=== PATIENT | female | born 1980 | race Caucasian/White ===

== ENCOUNTER → 2017-02-06 | Outpatient (CLI) | payer BC, OTHER ==
[~2017-02-06] MED LIST: MIDOL
--- NOTE | 2017-02-06 19:49 | Diagnostic Imaging Report ---
EXAMINATION: Transabdominal and transvaginal pelvic ultrasound. INDICATION: Menorrhagia. Dysmenorrhea. FINDINGS: The uterus is 9.2 x 8.8 x 6.1 cm. It is heterogenous with no discrete mass identified. The endometrial stripe is some 6 mm in thickness. Tiny amount of endometrial fluid is noted. The left ovary is 3.5 x 2.4 x 1.4 cm. Arterial waveforms are demonstrated with Doppler evaluation. The right adnexal images failed to demonstrate the right ovary which could be obscured by bowel gas. IMPRESSION: 1. Enlarged heterogenous uterus without discrete mass. Consider possibility of underlying adenomyosis. 2. The right ovary is not seen. Dictated by: Dictated on workstation # [id number]
== END ==
LOC: RAD 12:58
PROVIDERS: ATTEND Nurse Practitioner
DX: N85.2 Hypertrophy of uterus (principal)
CPT/HCPCS: 76830; 76856

== ENCOUNTER → 2019-10-28 | Outpatient (CLI) | payer BC, OTHER ==
--- NOTE | 2019-10-28 12:14 | Diagnostic Imaging Report ---
PROCEDURE: US Non-ob pelvis comp/trans. INDICATION: Pelvic pain. TECHNIQUE: Multiple Real-time grayscale sonographic images were obtained of the pelvis transabdominally and endovaginally. CORRELATION STUDY: 02/06/2017. FINDINGS: UTERUS: Mildly enlarged at 11.1 x 7.5 x 8.1 cm. Diffusely heterogeneous echotexture throughout the myometrium. ENDOMETRIUM: Somewhat indistinct but appears to be likely within normal limits at approximately 6 mm. RIGHT OVARY: Not visualized, perhaps obscured by overlying bowel gas and/or positional. LEFT OVARY: 4.0 x 1.8 x 1.7 cm . Somewhat limited in assessment but overall generally unremarkable. Blood flow in particular is not well visualized. Small amount of pelvic fluid. IMPRESSION: 1. Mildly enlarged, heterogeneous appearance about the uterus without definitive discrete mass. While nonspecific, this may reflect underlying adenomyosis. 2. Limited visualization of the left ovary but grossly unremarkable with nonvisualization of the right ovary. Dictated by: Dictated on workstation # [id number]
--- NOTE | 2019-10-28 13:02 | Diagnostic Imaging Report ---
INDICATION: Routine screening. No prior mammograms are available for comparison. This is a baseline study. 2-D and 3-D bilateral screening mammography was performed with CAD. Both breasts are heterogeneously dense, limiting the sensitivity of mammography. Densities are identified in both the medial and lateral aspect of the left breast at anterior depth. These are best seen on the CC view, appear to be superiorly located on the MLO view. Additional views recommended. No suspicious microcalcifications are seen. IMPRESSION: BI-RADS Category 0. Left breast densities. Additional views are recommended for further evaluation. ACR BI-RADS Category 0: Incomplete. (Needs additional imaging evaluation). Result letter will be mailed to the patient. Note: At least 10% of breast cancer is not imaged by mammography. Dictated by: Dictated on workstation # [id number]
== END ==
LOC: RAD 09:23
PROVIDERS: ATTEND Nurse Practitioner
DX: Z12.31 Encounter for screening mammogram for malignant neoplasm of breast (principal); N93.8 Other specified abnormal uterine and vaginal bleeding
CPT/HCPCS: 76830; 76856; 77063; 77067

== ENCOUNTER → 2019-11-07 | Outpatient (CLI) | payer BC ==
--- NOTE | 2019-11-07 14:12 | Diagnostic Imaging Report ---
INDICATION: Left breast densities. Patient presents for additional views. CORRELATION is made with recent screening study from 10/28/2019. Unilateral left 2-D and 3-D diagnostic mammography was performed. This included spot compression CC, rolled CC and conventional 90 degree lateral views. Additional view shows some persistence of circumscribed nodular densities in the upper left breast both on the medial and lateral side 3-5 cm from the nipple. These may represent cysts. No suspicious calcifications are seen. IMPRESSION: BI-RADS 0. Persistent densities in the upper left breast medial and lateral. Further evaluation with ultrasound is recommended and will be performed today. ACR BI-RADS Category 0: Incomplete. (Needs additional imaging evaluation). Result letter will be mailed to the patient. Note: At least 10% of breast cancer is not imaged by mammography. Dictated by: Dictated on workstation # [id number]
--- NOTE | 2019-11-07 16:53 | Diagnostic Imaging Report ---
INDICATION: Left breast densities. Correlation is made with diagnostic study earlier this same day and screening mammogram from 10/28/2019. Sonographic interrogation of the left breast was performed. Imaging was performed from approximately the 10:00 to 3:00 location. There are numerous cysts present, greatest in the 10:00 region approximately 3 cm from the nipple. Largest is 9 mm x 4 mm x 8 mm. This likely accounts for the densities noted mammographically. No solid mass is detected. IMPRESSION: BI-RADS Category 2 Simple left breast cysts, likely accounting for the mammographic densities. The patient may return to routine annual screening mammography. ACR BI-RADS Category 2: Benign findings. Result letter will be mailed to the patient. Note: At least 10% of breast cancer is not imaged by mammography. Dictated by: Dictated on workstation # [id number]
== END ==
LOC: RAD 13:07
PROVIDERS: ATTEND Nurse Practitioner
DX: N60.02 Solitary cyst of left breast (principal)
CPT/HCPCS: 76642; 77065; G0279

== ENCOUNTER 2019-12-04 05:33 | Outpatient (CLI) | payer BC ==
[~2019-12-04] VITALS: Ht 167.7 cm; Wt 88.6 kg
== END 2019-12-04 13:06 | disposition home or self-care (01) ==
LOC: PREOP 05:33
PROVIDERS: ATTEND Obstetrics & Gynecology
DX: Z01.818 Encounter for other preprocedural examination (principal)

== ENCOUNTER 2019-12-08 08:58 | Day surgery (SDC) | payer BC ==
[2019-12-08] VITALS (10 sets, daily range): BP systolic 107–135; BP diastolic 63–97
[~2019-12-08] VITALS: Ht 167.7 cm; Wt 88.6 kg
[2019-12-08] MEDS ORDERED: LACTATED RINGERS 1,000 ML IV PRN (09:08)
[2019-12-08] MEDS ORDERED: LACTATED RINGERS 1,000 ML IV ONE (09:08)
[2019-12-08] MEDS ORDERED: ceFAZolin 2 GM IV Premixed 50 ML IV ONE (09:15)
[2019-12-08] MEDS ORDERED: metroNIDAZOLE 500MG/100ML IVPB 100 ML IV ONE (09:15)
--- OUTSIDE RECORDS SUMMARY | 2019-12-08 09:28 | XMS REPORT | Continuity of Care Document ---
Author Author [facility] Organization [employer] Address Unknown Phone Unavailable Allergies Active Description Code Type Severity Reaction Onset Reported/Identified Relationship to Patient Clinical Status Yes No Known Drug Allergies [id number] Drug Allergy Mild N/A 01/10/2009 Medications There is no data. Problems Date Dx Coded Attending Type Code Diagnosis Diagnosed By 02/21/2017 NAHOMY LLANOS Ot N85.2 HYPERTROPHY OF UTERUS 11/07/2019 NAHOMY LLANOS Ot N93.8 OTHER SPECIFIED ABNORMAL UTERINE AND VAG 11/07/2019 NAHOMY LLANOS Ot Z12.3 1 ENCNTR SCREEN MAMMOGRAM FOR MALIGNANT NE 11/10/2019 NAHOMY LLANOS Ot N60.0 2 SOLITARY CYST OF LEFT BREAST 11/14/2019 NAHOMY LLANOS Ot N93.8 OTHER SPECIFIED ABNORMAL UTERINE AND VAG 11/14/2019 NAHOMY LLANOS Ot Z12.3 1 ENCNTR SCREEN MAMMOGRAM FOR MALIGNANT NE 11/21/2019 NAHOMY LLANOS Ot N60.0 2 SOLITARY CYST OF LEFT BREAST Procedures There is no data. Results There is no data. Encounters ACCT No. Visit Date/Time Discharge Status Pt. Type Provider Facility Loc./Unit Complaint [id number] 12/04/2019 05:33:00 020 13:06:00 DIS Outpatient ARNOLD RAGSDALE DO [facility] PREOP MENORRHAGIA [id number] 11/07/2019 13:07:00 23:59:59 CLS Outpatient NAHOMY LLANOS [facility] RAD ABN MAMMO [id number] 10/28/2019 09:23:00 020 23:59:59 CLS Outpatient NAHOMY LLANOS [facility] RAD SCREENING,DYSFUNCTIONAL UTERINE BLEEDING [id number] 02/06/2017 12:58:00 23:59:59 CLS Outpatient NAHOMY LLANOS [facility] RAD MENORRHAGIA N92.0 [id number] 12/08/2019 10:15:00 P [facility]
[2019-12-08 09:35] LABS: BASOPHILS # (AUTO) 0.1 10^3/uL (0.0-0.1); BASOPHILS % (AUTO) 1 % (0-10); EOSINOPHILS # (AUTO) 0.3 10^3/uL (0.0-0.3); EOSINOPHILS % (AUTO) 3 % (0-10); HEMATOCRIT 45 % (35-52); HEMOGLOBIN 15.1 G/DL (11.5-16.0); LYMPHOCYTES # (AUTO) 2.6 X 10^3 (1.0-4.0); LYMPHOCYTES % (AUTO) 26 % (12-44); MEAN CORPUSCULAR HEMOGLOBIN 29 PG (25-34); MEAN CORPUSCULAR HGB CONC 33 G/DL (32-36); MEAN CORPUSCULAR VOLUME 88 FL (80-99); MEAN PLATELET VOLUME 10.7 FL (7.4-10.4); MONOCYTES % (AUTO) 10 % (0-12); NEUTROPHILS # (AUTO) 6.1 X 10^3 (1.8-7.8); NEUTROPHILS % (AUTO) 61 % (42-75); PLATELET COUNT 321 10^3/uL (130-400); RED CELL DISTRIBUTION WIDTH 14.4 % (10.0-14.5)
[2019-12-08] MEDS ORDERED: BUPIVACAINE 0.25% 30 ML (SENSORCAINE) VIAL ONE (09:37)
[2019-12-08] MEDS ORDERED: ESTRADIOL VAGINAL CREAM 42.5 GM (ESTRACE) VG ONE (09:38)
[2019-12-08] MEDS ORDERED: NS (IVPB) 0 ML ONE (09:43)
[2019-12-08] MEDS ORDERED: VASOPRESSIN INJECTION 20 UNIT/ML VIAL ONE (09:43)
[2019-12-08] MEDS ORDERED: ZOLPIDEM 5 MG (AMBIEN) TAB PO PRN (09:45)
[2019-12-08] MEDS ORDERED: KETOROLAC 30 MG/ML VIAL IV PRN (09:45)
[2019-12-08] MEDS ORDERED: HYDROcodone/APAP 7.5 MG/325 MG (LORTAB, LORCET PLUS) TABLET PO PRN (09:45)
[2019-12-08] MEDS ORDERED: SIMETHICONE 80 MG (MYLICON) CHEW PO PRN (09:45)
[2019-12-08] MEDS ORDERED: DOCUSATE SODIUM 100 MG (COLACE) CAP PO PRN (09:45)
[2019-12-08] MEDS ORDERED: CHLORASEPTIC LOZENGE MM PRN (09:45)
[2019-12-08] MEDS ORDERED: ANTACID SUSP 30 ML UDC (MYLANTA) PO PRN (09:45)
[2019-12-08] MEDS ORDERED: ONDANSETRON 4 MG/2 ML (SDV) Z0FRAN IV PRN (09:45)
--- NOTE | 2019-12-08 09:45 | Progress Note-Pre Operative ---
Pre-Operative Progress Note H&P Reviewed The H&P was reviewed, patient examined and no changes noted. Date Seen by Provider: Dec 08, 2019 Time Seen by Provider: :44 Date H&P Reviewed: Dec 08, 2019 Time H&P Reviewed: 09:44 Pre-Operative Diagnosis: Dysmenorrhea, Menorrhagia, POP ARNOLD RAGSDALE DO Dec 08, 2019 09:44
[2019-12-08] MEDS ORDERED: HYDR-34 PO (09:52)
[2019-12-08] MEDS ORDERED: IBUP-844 PO (09:52)
[2019-12-08] MEDS ORDERED: SIME80TA16 PO (09:52)
[2019-12-08] MEDS ORDERED: DCS100C PO (09:52)
--- NOTE | 2019-12-08 09:53 | Discharge Inst-Women's Service ---
Discharge Inst-Women's Serv Depart Medication/Instructions New, Converted or Re-Newed RX: RX on Chart Problems Reviewed?: Yes Consults/Follow Up Additional Follow Up: Yes Activity Activity: Activity as Tolerated Driving Instructions: No Driving for 1 Week NO SMOKING: NO SMOKING Nothing Inside Vagina: No Douching, No Libby, No Tampons Diet Discharge Diet: No Restrictions Symptoms to Report to : Bleeding Excessive, Pain Increased, Fever Over 101 Degrees F, Vaginal Bleeding Increase, Questions/Concerns For Any Problems or Questions: Contact Your Physician Skin/Wound Care Infection Signs and Symptoms: Increased Redness, Foul Odor of Wound, Increased Drainage, Skin Itchy or Has a Rash, Increased Swelling, Temperature Above 101 F Operative Area Clean and Dry: Keep Incision Clean/Dry Stitches/[place]/Dermabond: Dermabond, Care of Stitches Bathing Instructions: ARNOLD Rivas DO Dec 08, 2019 09:53
[2019-12-08] MEDS ORDERED: ONDANSETRON 4 MG/2 ML (SDV) Z0FRAN ONE (09:59)
[2019-12-08] MEDS ORDERED: ROCURONIUM 10 MG/ML 5 ML SYRINGE IV ONE ×2 (09:59→10:01)
[2019-12-08] MEDS ORDERED: SEVOFLURANE (ULTANE) 15 ML INHAL SOLN ONE (09:59)
[2019-12-08] MEDS ORDERED: fentaNYL INJECTION 100 MCG/2 ML AMP ONE (09:59)
[2019-12-08] MEDS ORDERED: LIDOCAINE PF 2% 5 ML (XYLOCAINE) VIAL ONE (09:59)
[2019-12-08] MEDS ORDERED: proPOfol 200 MG/20 ML (DIPRIVAN) VIAL IV ONE (09:59)
[2019-12-08] MEDS ORDERED: MIDAZOLAM 2 MG/2 ML (VERSED) VIAL ONE (09:59)
[2019-12-08] MEDS ORDERED: NEOSTIGMINE 3 MG/3 ML VIAL ONE (10:00)
[2019-12-08] MEDS ORDERED: GLYCOPYRROLATE 0.2 MG/ML (ROBINUL) 2 ML VIAL ONE (10:00)
[2019-12-08] MEDS ORDERED: HYDROmorphone 2 MG/ML VIAL (DILAUDID) ONE (11:07)
[2019-12-08] MEDS ORDERED: KETOROLAC 30 MG/ML VIAL ONE (11:55)
[2019-12-08] MEDS ORDERED: HYDROmorphone 2 MG/ML VIAL (DILAUDID) IV ONE (12:30)
[2019-12-08] MEDS ORDERED: ONDANSETRON 4 MG/2 ML (SDV) Z0FRAN IVP PRN (12:30)
[2019-12-08] MEDS: LACTATED RINGERS 1,000 ML IV SCH ×2 (12:32→15:16)
--- NOTE | 2019-12-08 13:08 | Anesthesia-General Post-Op ---
General Patient Condition Mental Status/LOC: Same as Preop Cardiovascular: Satisfactory Nausea/Vomiting: Absent Respiratory: Satisfactory Pain: Controlled Complications: Absent Post Op Complications Complications None Follow Up Care/Instructions Patient Instructions None needed. Anesthesia/Patient Condition Patient Condition Patient is doing well, no complaints, stable vital signs, no apparent adverse anesthesia problems. No complications reported per nursing. [place] [facility] [place]: Yes KILO CORRAL CRNA Dec 08, 2019 13:08
--- NOTE | 2019-12-08 13:20 | NUR ---
REPORT FROM VANESSA CAZARES.
--- NOTE | 2019-12-08 13:30 | NUR ---
INITIAL ASSESSMENT COMPLETED, SEE INTERVENTIONS FOR DETAILED ASSESSMENTS, PLAN OF CARE EXPLAINED, WILL MONITOR CLOSELY.
[2019-12-08] MEDS ORDERED: guaiFENesin (MUCINEX) 600 MG TAB PO ONE (17:37)
[2019-12-08] MEDS ORDERED: IBUPROFEN 600 MG (MOTRIN) TAB PO ONE (17:37)
--- NOTE | 2019-12-08 17:50 | NUR ---
PRANAV TUCKER demonstrates understanding of discharge instructions and accurately returns instructions upon questioning. Copy of Post-Discharge Instructions and Medication Discharge Instructions given to patient. PRANAV TUCKER is able to manage continuing needs after discharge. Patients belongings returned to patient. Skin dry and intact; no breakdown noted. Patient discharged from 3303- on 12-08-19 at 1750. PRANAV TUCKER left floor via w/c, accompanied by staff.
--- NOTE | 2019-12-08 20:57 | OPERATIVE REPORT ---
DATE OF SERVICE: PREOPERATIVE DIAGNOSES: 1. A 39-year-old female with menorrhagia. 2. Dysmenorrhea. 3. Grade II cystocele with mild pelvic organ prolapse. POSTOPERATIVE DIAGNOSES: 1. A 39-year-old female with menorrhagia. 2. Dysmenorrhea. 3. Grade II cystocele with mild pelvic organ prolapse. PROCEDURE: Robotic-assisted total laparoscopic hysterectomy with bilateral salpingectomy. SURGEON: Alex Kapadia DO DRY CELL BATTERY ASSEMBLER: Gabi Yanez DNP, was necessary for manipulation and retraction throughout the procedure. ANESTHESIA: General endotracheal. ESTIMATED BLOOD LOSS: Minimal. URINE OUTPUT: 50 mL clear at the end of the procedure. FLUIDS: 1000 mL lactated Ringer's solution. FINDINGS: A hyperemic and bulky appearing uterus, absent of the distal ampullary portion of fallopian tubes bilaterally. Grossly normal-appearing ovaries. SPECIMEN SENT: Uterus, bilateral fallopian tubes. INDICATIONS FOR PROCEDURE: This 39-year-old female patient was a consultation to me from Renetta Castellanos, our nurse practitioner, for findings of pelvic organ prolapse as well as history of heavy bleeding that had failed more conservative management measures in the past. Upon reviewing this with the patient in detail in the office, she was wishing to proceed with more definitive measures and resolution of her bladder prolapse. Risks of procedure were discussed with the patient in detail including risk of bleeding, infection, damaging surrounding structures including, but not limited to bowel, bladder, ureter, kidneys, possible need for reoperation, postoperative complications that may occur, recovery timeframe, risk from anesthesia and possible need for blood transfusion and even . After everything was discussed with the patient in detail, consent was obtained in the preoperative area, the patient was taken to the operating room. OPERATIVE REPORT IN DETAIL: Once in the operating room, general anesthesia was found to be adequate. She was placed in dorsal lithotomy position, prepped and draped in normal sterile fashion. A timeout was performed. A weighted speculum was inserted into the patient's vagina after Colon catheter was placed using sterile technique. A right angle retractor was used to visualize the cervix. It was grasped at 12 o'clock position using a long Allis clamp and 0 Vicryl suture was then placed in the anterior lip of the cervix and this was using my retraction point. I then removed the Allis clamp and gently sounded the uterine cavity at a depth of 8 cm. I selected an 8 cm Tanya uterine manipulator tip and a 3.5 cm colpotomy ring. The manipulator tip was advanced into the uterus where the balloon was deployed and the colpotomy ring was advanced around the vaginal fornix after which all other instruments were removed from the patient's vagina. I performed a change of gloves and took my attention to the abdomen where infraumbilically I infiltrated this area using 0.25% Marcaine. I made an 8 mm incision with a knife and directed a Veress needle through the incision until intraperitoneal placement was confirmed using saline drop test. I then proceeded with insufflation using CO2 gas and opening pressure of 5 mmHg was noted. I proceeded to a maximum pressure of 15 mmHg, at which point I removed the Veress needle and introduced an 8 mm da Antoni camera trocar. Once this was in place, I am able to confirm intraperitoneal placement using the da Antoni laparoscope. A brief scan of the upper abdominal anatomy appears to be grossly normal. I had the patient placed in steep Trendelenburg. I made to visualize all my pelvic anatomy findings as described in my findings above. I then placed two lateral trocars using both 8 mm trocars approximately 10 cm lateral to my infraumbilical trocar. Once these trocars were in place, I brought in the da Antoni robot and docked in appropriate fashion, placing the vessel sealer in the left hand and monopolar zaire in the right hand, I performed the following dissection bilaterally. I started at the uteroovarian ligament, bipolar cauterized and transected using the vessel sealer. I then grasped the round ligament, bipolar cauterized and transected using vessel sealer. I then am able to transect through the broad ligament due to the absence of the distal ampullary portion of the fallopian tube. I sealed with the vessel sealer and transected using the vessel sealer as well. I then took the broad ligament all the way down to the lower uterine segment, which I the anterior and posterior leaflets of the broad ligament, anteriorly was taken to the anterior vaginal fornix, posterior leaflet was taken around the posterior vaginal fornix. This allows me to skeletonize the uterine vessels laterally, which I then bipolar cauterized and transected using vessel sealer. I then created a colpotomy at 12 o'clock position, taken this circumferentially around the vagina, amputating the cervix from the vagina. I then removed the entire specimen through the vagina. We closed the lateral vaginal apices of the vaginal cuff using 2-0 Vicryl suture in a [id number] fashion colposuspending the uterosacral ligament. I then closed the remainder of the vaginal cuff using 2-0 V-Loc in a running fashion, after which no active bleeding was noted from any of my dissection planes. I then undocked the da Antoni robot and proceeded with remainder of the case laparoscopically. I copiously irrigated the pelvis using normal saline. Once again, no active bleeding noted from any of my dissection planes. I placed FloSeal hemostatic agent over all my planes of dissection, after which the patient was taken out of steep Trendelenburg. The lateral trocars were taken out under direct visualization of laparoscope. The infraumbilical trocar was left in place to release insufflation and to introduce 10 mL of 0.25% Marcaine for postoperative pain management. I then removed this trocar as well. The skin was reapproximated using 4-0 Monocryl in interrupted subcuticular stitches. Dermabond was applied to the incisions and Band-Aids were placed over the incisions as well. Colon catheter was left in place. Two grams of Ancef, 500 mg of Flagyl were given preoperatively for infection prophylaxis. Job ID: [id number] DocumentID: [id number] Dictated Date: 12/08/2019 12:33:46 Sports Medicine Trainer Date: 12/08/2019 20:56:11 Dictated By: ALEX KAPADIA DO
[2019-12-09] MEDS ORDERED: IBUPROFEN 600 MG (MOTRIN) TAB PO SCH (02:30)
--- NOTE | 2019-12-09 08:02 | Anesthesia-General Post-Op ---
General Patient Condition Mental Status/LOC: Same as Preop Cardiovascular: Satisfactory Nausea/Vomiting: Absent Respiratory: Satisfactory Pain: Controlled Complications: Absent Post Op Complications Complications None Follow Up Care/Instructions Patient Instructions None needed. Anesthesia/Patient Condition Patient Condition Patient is doing well, no complaints, stable vital signs, no apparent adverse anesthesia problems. No complications reported per nursing. [place] [facility] [place]: [place] FRANC SMITH CRNA Dec 09, 2019 08:02
== END 2019-12-08 17:50 | disposition home or self-care (01) ==
LOC: SDC 08:58 → LDRP 14:10 → SDC 17:50
PROVIDERS: ATTEND Obstetrics & Gynecology
DX: N80.0 Endometriosis of uterus (principal); N92.0 Excessive and frequent menstruation with regular cycle; N94.6 Dysmenorrhea, unspecified; N81.2 Incomplete uterovaginal prolapse; K21.9 Gastro-esophageal reflux disease without esophagitis; F17.210 Nicotine dependence, cigarettes, uncomplicated; E66.9 Obesity, unspecified; Z68.31 Body mass index [BMI] 31.0-31.9, adult; Z11.2 Encounter for screening for other bacterial diseases
CPT/HCPCS: 36415; 84703; 85025; 86850; 86900; 86901; 87081; 88307; 94664